=== PATIENT | male | born 1970 | race American Indian/Alaskan Native ===

== ENCOUNTER 2021-07-24 10:45 | Outpatient (CLI) | payer MEDICARE, MEDICAID ==
[2021-07-24 11:42] LABS: Alanine Aminotransferase 34 units/L (7-56); Albumin 4.2 g/dL (3.9-5); Blood Urea Nitrogen 13 mg/dL (9-20); Calcium 9.6 mg/dL (8.4-10.2); Chol/HDL Ratio 5.27 %; HDL Cholesterol 37 mg/dL (40-59); Hematocrit 39.2 % (35.5-45.6); Hemoglobin 13.1 gm/dl (11.8-15.2); Hemolysis Index 2; LDL Cholesterol,Direct 150 mg/dL (50-130); Mean Corpuscular HGB Conc 33 % (32-34); Mean Corpuscular Volume 80 fl (84-94); Platelet Count 283 K/mm3 (140-440); Red Blood Count 4.92 M/mm3 (3.65-5.03); Red Cell Distribution Width 15.6 % (13.2-15.2)
[2021-07-24 11:54] LABS: BUN/Creatinine Ratio 19
--- NOTE | 2021-07-24 13:33 | Fluoroscopy Report ---
UPPER GI INDICATION / CLINICAL INFORMATION: Gastro-esophageal reflux disease without esophagitis TECHNIQUE: Upper GI exam was performed with double contrast barium and air. Please note that the exam was very limited secondary to patient's neurological status and fall risk. Patient was unable to sta nd upright. Patient was unable to roll. COMPARISON: None available. FINDINGS: MOTILITY: There is delayed transit of contrast with tertiary contractions MUCOSA: No significant abnormality. MASS: None. STRICTURE: None. HIATAL HERNIA: Not seen. REFLUX: Not seen STOMACH: Within the DUODENUM: No significant abnormality. ADDITIONAL FINDINGS: None. Fluoroscopy Time: 3.4 minutes. Fluoroscopy Images: 10. IMPRESSION: 1. Very limited examination secondary to patient's neurological status and fall risk. Despite this li mitation imaging of the esophagus did demonstrate tertiary contractions as well as delayed transit of contrast into the stomach. Signer Name: Nadir Pathak DO Signed: 07/24/2021 1:28 PM Workstation Name: [id number]
--- NOTE | 2021-07-24 14:05 | XRay Report ---
CHEST 2 VIEWS, 07/24/2021 INDICATION: Gastroesophageal reflux disease without esophagitis COMPARISON: None FINDINGS: Support devices: None. Heart: The cardiac silhouette is normal in size. Lungs/pleura: The lungs are clear of focal airspace disease or significant pleural effusion. Additional findings: Evaluation of bony structures demonstrates minimal degenerative changes of the t horacic spine. IMPRESSION: 1. No evidence of acute cardiopulmonary process. Signer Name: Veronique Hollis MD Signed: 07/24/2021 2:00 PM Workstation Name: [id number]
== END 2021-07-24 10:46 | disposition home or self-care (01) ==
LOC: FLUORO 10:45
PROVIDERS: ATTEND Internal Medicine
DX: K21.9 Gastro-esophageal reflux disease without esophagitis (principal); R05 Cough; J30.89 Other allergic rhinitis; M47.814 Spondylosis without myelopathy or radiculopathy, thoracic region; Z98.890 Other specified postprocedural states
CPT/HCPCS: 36415; 71046; 74246; 80053; 80061; 82785; 84436; 84443; 85027; 86003